=== PATIENT | female | born 1975 | race Caucasian/White ===

== ENCOUNTER 2022-02-15 12:00 | Outpatient (CLI) | payer OTHER, SELFPAY ==
[2022-02-15 13:21] LABS: Hematocrit 31.9 % (37-47); Hemoglobin 10.3 g/dL (12.0-15.0); Mean Corp Hgb Conc 32.3 g/dL (32-36); Mean Corpuscular Volume 86.7 fL (81-99); Platelet Count 352 K/mm3 (150-450); RBC Distribution Width CV 16.4 % (11.6-14.6); RBC Distribution Width SD 51.1 fl (35.1-43.9); Red Blood Count 3.68 M/mm3 (4.2-5.4); White Blood Count 5.5 K/mm3 (4.4-11.0)
== END 2022-02-15 23:59 | disposition home or self-care (01) ==
LOC: LABSPEC 12:03
PROVIDERS: Visit Provider Obstetrics & Gynecology
DX: R19.00 Intra-abdominal and pelvic swelling, mass and lump, unspecified site (principal)
CPT/HCPCS: 36415; 85027; 86304

== ENCOUNTER 2022-03-05 13:14 | Inpatient (IN) | payer SELFPAY, OTHER ==
[2022-02-28 11:39] LABS: Hematocrit 33.1 % (37-47); Hemoglobin 10.8 g/dL (12.0-15.0); Mean Corp Hgb Conc 32.6 g/dL (32-36); Mean Corpuscular Hgb 28.1 pg (27.0-32.0); Mean Corpuscular Volume 86.2 fL (81-99); Mean Platelet Vol. 9.4 fl (6.2-12.0); Platelet Count 337 K/mm3 (150-450); RBC Distribution Width CV 16.1 % (11.6-14.6); RBC Distribution Width SD 50.8 fl (35.1-43.9); Red Blood Count 3.84 M/mm3 (4.2-5.4); White Blood Count 6.1 K/mm3 (4.4-11.0)
[2022-02-28 11:48] LABS: International Normalized Ratio 0.9; Prothrombin Time (Protime)PT. 12.1 SECONDS (11.7-14.9)
[2022-02-28 11:49] LABS: Partial Thromboplast Time 29.5 Seconds (24.1-36.2)
[2022-02-28 11:50] LABS: Magnesium 2.1 mg/dL (1.6-2.6)
[2022-02-28 11:59] LABS: Creatinine, Serum 0.59 mg/dL (0.55-1.02); EST Glomerular Filtration Rate 117 mL/min (>60); Est Glom Filt Rate - Afr Amer 142 mL/min (>60)
[2022-02-28 12:03] LABS: Internal QC Validated? YES +Cl - CLEAR BKGD; Pregnancy, Serum, hCG Quali. NEGATIVE Negative
--- NOTE | 2022-03-02 18:06 | HP.PCM_ITS ---
History and Physical Date of Admission: 03/05/22 Surgical History and Physical Christelle Saldaña, a 46 year old female 0 0 0 0 0, presents for RENETTA/BS on March 05, 2022. -- Large Pelvic Mass Likely Fibroids -- Christelle is here today to discuss fibroids that was found on a CT scan on 02/01/22 in [facility]. States she has fullness and mild pain in her abdominal pelvic area. MEdications and allergies are up to date. Never had IC. Fibroids and abdominal pelvic fullness and pain which began 3 weeks ago and has been present 3 weeks. It is located in the uterus. Severity is mild to moderate. It is aggravated by lifting. It is relieved by rest. Additional comments are: lots of pelvic pressure.; Additional comments are: CT scan at [facility] showed large masses (20 cm) likely fibroids. Confirmed with u/s. MEDICATIONS HISTORY: Patient is also takin. No Meds ALLERGIES: No Known Drug Allergies Infections - none Hospitalizations - none Review of Systems: GENERAL - Denies fever, or chills SKIN - Denies skin changes EYES - Denies visual changes EARS - Denies difficulty hearing NOSE - Denies nasal congestion or bleeding MOUTH - Denies sore throat or difficulty swallowing NECK - Denies pain or swelling RESPIRATORY - Denies shortness of breath or wheezing CARDIOVASCULAR - Denies palpitations or chest pain GASTROINTESTINAL - Denies nausea, vomiting, diarrhea, constipation GENITOURINARY - Denies dysuria, frequency of urination, incontinence of urine MUSCULOSKELETAL - Denies joint or muscle pain NEUROLOGICAL - Denies localized numbness or weakness PSYCHIATRIC - Denies depression or anxiety ENDOCRINE - Denies heat or cold intolerance, weight loss or gain HEMATO-IMMUNOLOGIC - Denies excesive bleeding with cuts SOCIAL HISTORY: Alcohol Use - denies drinking Smoking - denies smoking Exercise - active 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 none PHYSICAL EXAM BP- 110/70 Sitting, Right arm, regular cuff Weight- 144.0 lbs Height- 66.75 inch BMI:22.7 CONSTITUTIONAL - NAD, well nourished, and well developed SKIN - No rash, lesions, or ulcers HEENT - Normocephalic, PERRLA, EOMI NECK - No nodes, no nuchal rigidity and thyroid normal size and texture LYMPH NODES - Palpation of lymph nodes in neck and groins within normal limits LUNGS - CTA x2 without wheezes, crackles or rales CARDIAC - Regular rate and rhythm without rubs, murmurs, or gallops ABDOMEN - Without hepatosplenomegaly, distention, masses, rebound, or guarding; normal bowel sounds; no hernias and large 28 cm uterine mass mildly moveable EXTREMITIES - No edema or calf tenderness NEUROLOGICAL - Cranial nerves II-XII grossly intact PSYCHIATRIC - A and O to time, place, person, mood and affect ASSESSMENT/PLAN: 1. Other Intra-abdominal And Pelvic Swelling, Mass And Lump Likely large symptomatic uterine fibroids. U/S done in office today also suggests this is fibroids. CA-125 benign result. Proceed with RENETTA/BS. Discussed RBAs including possible need for txn or BSO with need for HRT and all questions answered.
[2022-03-05] VITALS (14 sets, daily range): BP systolic 88–115; BP diastolic 47–72; PULSE 50–76; RESP 12–16; TEMP 36.4–37.4; O2SAT 16–100; BMI 24.6
--- NOTE | 2022-03-05 | OV_PTH ---
PATIENT: LEXII LUND LOC: MS3 U#:[id number] AGE/SX: 46/F ROOM: [facility] [place] RE03/05/[address]: Dr. Boris Ritchie MD : 1975 BED: 1 DIS: 03/07/2022 SPEC #: [id number] RECD: 03/05/22 11:31 STATUS: DIANA SCHWARTZ #: [id number] RISHABH: 03/05/22 00:[address]: Boris Ritchie DEPT: SURGICAL PATHOLOGY RECD BY: Vaishnavi Medrano ENTERED: 03/05/22 12:04 SP TYPE: OVARY OTHR DR: Dr. Robert Brito MD Tissues: A - Left ovary B - Uterus, NOS Procedures: Frozen Section (charge) Surgery Specimen Level IV Surgery Specimen Level V HEADER OPERATION: ERAS, total abdominal hysterectomy, bilateral salpingectomy PRE-OP DIAGNOSIS: Intra-abdominal and pelvic swelling, mass and lump TISSUE SUBMITTED: A ? Left ovary, FS, B ? Uterus cervix, bilateral fallopian tubes FROZEN SECTION DIAGNOSIS A. Left ovary: Consistent with leiomyoma. DOMINIC:susie 03/05/2022 MICROSCOPIC DIAGNOSIS A. Left ovary: Consistent with leiomyoma (1950 gm and 24 cm in greatest dimension). B. Uterus, cervix and bilateral fallopian tubes, hysterectomy and bilateral salpingectomy: Cervix ? mild chronic inflammation. Endometrium ? proliferative endometrium. Myometrium ? intramural and submucosal leiomyomas. Bilateral fallopian tubes - no pathologic diagnosis. DOMINIC:susie 03/06/2022 MICROSCOPIC DESCRIPTION Slides are reviewed. GROSS DESCRIPTION A - Received fresh for frozen section diagnosis labeled with the patient's name is a specimen designated left ovary. The specimen consists of a large bartholomew-white nodule weighing 1950 gm and measuring 24 x 16 x 12 cm. The specimen is inked and serially sectioned and reveal bartholomew whorled cut surfaces without areas of hemorrhage, necrosis or cystic degeneration. Two sections are submitted for?frozen section diagnosis. Roller Die Cutting Machine Operator sections are submitted in ten cassettes as follows: 1 & 2 - frozen section, 3-10 - more sections. / DOMINIC:susie 03/05/2022 B - Received in fixative is one container labeled with the patient's name and designated uterus, cervix, bilateral fallopian tubes. The specimen consists of a hysterectomy specimen consisting of uterus, cervix and bilateral fallopian tubes. Also present in the container is a detached nodular mass and piece of bartholomew soft tissue. The uterus with cervix weighs 276 gm and measures 12 x 8 x 7 cm. The body of the uterus is distorted. The serosal surface is bartholomew, glistening. The ectocervical mucosa is unremarkable. The external os is pinpoint in contour. The endocervical canal measures 3.5 cm in length and the endocervical mucosa is bartholomew, glistening and unremarkable. Sections of the cervix reveal multiple cysts filled with mucoid material. The endometrial cavity is compressed to one side and triangular in shape and measures 6 cm in length and up to 4.5 cm in width. The endometrium is bartholomew, glistening without any mass lesion and measures up to 0.3 cm in thickness. Sections of the uterine wall reveal a large submucosal nodular mass measuring 6 cm in greatest dimension. Smaller nodular masses are also noted. The uninvolved uterine wall measures up to 2.5 cm in thickness. Sections of these masses reveal bartholomew whorled cut surfaces without areas of hemorrhage, necrosis or cystic degeneration. The detached nodular mass measures 3 cm in diameter. Also present in the container is a detached piece of soft tissue with a suture measuring 6 x 2 x 0.3 cm. Sections of this piece do not reveal any mass lesion. The right fallopian tube measures 7 cm in length and up to 0.6 cm in diameter. The fimbrial end is identified. Sections reveal unremarkable cut surfaces. The left fallopian tube is similar appearance to right and measures 8 cm in length and up to 0.8 cm in diameter. Roller Die Cutting Machine Operator sections are submitted in 12 cassettes as follows: 1 - anterior cervix, 2 - posterior cervix, 3 & 4 - anterior uterine wall, 5 & 6 - posterior uterine wall, 7 - largest submucosal nodular mass, 8 - detached nodular mass, 9 - smaller nodular masses, 10 - right fallopian tube, 11??detached piece of soft tissue, 12 - left fallopian tube. / SJ:susie 03/05/2022 TC:1 CPT: 29323, 58417, 21834
[2022-03-05 09:02] LABS: Internal QC Validated? YES +Cl - CLEAR BKGD; Pregnancy, Urine Negative Negative
[2022-03-05] MEDS: Acetaminophen 500 MG Tablet 1000 MG PO ×2 (09:13→17:58)
[2022-03-05] MEDS: Gabapentin 600 MG Tablet PO (09:13)
[2022-03-05 09:56] LABS: Bedside Glucose 91 mg/dL (74-106)
[2022-03-05] MEDS: Cefazolin 2 GM in 0.9% Normal Saline 100 ML IV (10:26)
--- NOTE | 2022-03-05 12:35 | OP.PCM_ITS ---
Problems Associated Problem List Diagnoses (1) Uterine fibroid: Report of Operation Date of Procedure: 03/05/22 Pre-Operative Diagnosis: Uterine fibroid Post-Operative Diagnosis: Same Surgery/Procedure Performed:: Repair of mesenteric rent Surgeon: Mitch Lawrence clarifier operator helper: Boris Ritchie Type of Anesthesia: General Description of Procedure: Got cold in the operating room to Dr. Ritchie's case. He was removing a large uterine fibroid and he developed a mesenteric rent in the mesentery of the transverse colon. Inspection of this the colon looked viable it had a good blood supply the blood supply was easily palpable. The rent however was significantly large at least the size of a baseball. I brought this together with 2-0 Vicryl making sure not to injure any of the vasculature to the colon. Mesenteric rent was closed except for the very top near the colon which I left open. I had good admit stasis Dr. Ritchie we will be doing the rest of the closure. Admit VTE Documentation VTE Present on Admission: No VTE Mechan Device Prophylaxis: SCD's VTE Pharm Prophylaxis ordered?: No
--- NOTE | 2022-03-05 12:59 | PCM.OPRPT ---
Report of Operation Date of Procedure: 03/05/22 Pre-Operative Diagnosis: Large Symptomatic Uterine Fibroids Post-Operative Diagnosis: Large Symptomatic Uterine Fibroids, Adhesions Surgery/Procedure Performed:: Total Abdominal Hysterectomy, Bilateral Salpingectomy, Lysis of Adhesions, Repair of Mesentery of Colon Description of Surgical Findings:: Approximately a 20 cm pedunculated fibroid with dense adhesions to the omentum and sigmoid colon and sigmoid colon mesentery. Approximately a 10 cm uterus with normal-appearing fallopian tubes and ovaries after the fibroid was removed. Surgeon: Boris Ritchie boat canvas maker installer: Elida Taveras Type of Anesthesia: General (Endotracheal) Anesthesiologist: Michael Santo Specimen's removed: Uterus and bilateral fallopian tubes. Drains: Hamilton to straight drain Estimated Blood Loss (mL): 650 cc Fluids Replaced: Crystalloid Description of Procedure: Surgeon: Boris Ritchie MD, FACOG Intraoperative Consult: Juve Lawrence MD, FACS Procedure: Total Abdominal Hysterectomy, Bilateral Salpingectomy, Lysis of Adhesions. Repair of mesentery per Dr. Lawrence reported separately. Indications: This is a 46-year-old patient who his been having problems with symptoms from a large pelvic mass which is believed to be a fibroid. Given this the patient desires that we proceed with the above procedure. She has been counseled regarding the risk and indications of this procedure including the possibility of bleeding, infection, and injury to surrounding structures such as bowel bladder. She understands that if both ovaries need to be removed that she will need to be on hormone replacement therapy for an indefinite period of time. All questions were answered. Procedure: Patient was taken to the operating room where after induction of general anesthesia she was prepped and draped in the usual sterile fashion. A Hamilton catheter was placed. The abdomen was entered through a midline incision and peritoneal cavity was entered bluntly. The large pelvic mass was encountered and attempts were made to deliver this through the incision. It was necessary to take down multiple adhesions between the large bowel, omentum, and mass with #1 Vicryl ties used extensively. After the fibroid was delivered and stalk ligated, Mag retractor was placed. Round ligaments were identified and ligated with 0 Vicryl suture. Mesosalpinx were ligated x2. A bladder flap was developed and progressive bites were then taken down on either side of the uterine cervix ligating each pedicle with 0 Vicryl suture. Final bites across the vaginal cuff incorporated the uterosacral ligaments into the vaginal cuff using 0 Vicryl suture and multiple [id number] sutures were placed across the vaginal cuff. Vaginal cuff and pelvic sidewall pedicles were oversewn where necessary to achieve hemostasis. Peristalsis of the right ureter was noted. Pelvis was copiously irrigated removing all clot. Mariola was placed to help with postoperative hemostasis across the vaginal cuff. The area of adhesiolysis of the large bowel was examined and there was noted to be approximately 10 cm opening in the mesentery. We asked Dr. Lawrence to examine this area and this was closed per Dr. Lawrence to avoid internal hernia formation. This is dictated separately per Dr. Lawrence. [place] retractor was removed and peritoneum was closed with running 3-0 Vicryl suture. 0 PDS loop suture was used to close the fascia in a running fashion and subcutaneous tissue was copiously irrigated with saline solution before closing with 3-0 Vicryl suture. Interrupted 4-0 Vicryl suture was placed subcuticularly to reapproximate the skin edges and 3-0 Monocryl suture was then used in running fashion to further reapproximate skin edges area and Steri-Strips and Mepilex dressing were placed across the incision. Patient tolerated the procedure well was taken to recovery room in satisfactory condition; sponge instrument and needle counts were all reportedly correct. Estimated blood loss for the case was 650 cc. Ancef 2 g IV was given prior to beginning the operative procedure. There were no apparent complications of the surgery. Specimen to pathology was uterus and bilateral fallopian tubes. Grafts/Implants Used: None Complications None Admit VTE Documentation VTE Present on Admission: Yes VTE Mechan Device Prophylaxis: SCD's
[2022-03-05] MEDS: Ondansetron 4 MG/2 ML Vial IV (13:15)
[2022-03-05] MEDS: Cefazolin 1 GM/50 ML BAG IV (17:58)
[2022-03-05] MEDS: Ondansetron ODT 4 MG Tablet PO (19:57)
[2022-03-05] MEDS: Ketorolac 30 MG/ML Syringe IV (21:08)
[2022-03-05] MEDS: Docusate Sodium 100 MG Capsule PO (21:08)
[2022-03-05] MEDS: Enoxaparin 30 MG/0.3 ML Syringe SC (21:08)
[2022-03-06 00:20] VITALS: BP 105/56; PULSE 67; RESP 18; TEMP 36.8; O2SAT 97
[2022-03-06] MEDS: Acetaminophen 500 MG Tablet 1000 MG PO ×4 (00:25→17:02)
[2022-03-06] MEDS: oxyCODONE 5 MG Tablet PO ×3 (00:25→17:01)
[2022-03-06 02:57] VITALS: BP 100/51; PULSE 68; RESP 18; TEMP 36.6; O2SAT 99
[2022-03-06] MEDS: Cefazolin 1 GM/50 ML BAG IV (03:00)
[2022-03-06] MEDS: Ketorolac 30 MG/ML Syringe IV ×4 (03:00→20:22)
[2022-03-06 06:18] LABS: Hematocrit 26.2 % (37-47); Hemoglobin 8.3 g/dL (12.0-15.0); Mean Corp Hgb Conc 31.7 g/dL (32-36); Mean Corpuscular Hgb 27.9 pg (27.0-32.0); Mean Corpuscular Volume 87.9 fL (81-99); Mean Platelet Vol. 10.4 fl (6.2-12.0); Platelet Count 229 K/mm3 (150-450); RBC Distribution Width CV 16.1 % (11.6-14.6); RBC Distribution Width SD 52.2 fl (35.1-43.9); Red Blood Count 2.98 M/mm3 (4.2-5.4); White Blood Count 7.5 K/mm3 (4.4-11.0)
[2022-03-06 06:56] LABS: Creatinine, Serum 0.59 mg/dL (0.55-1.02); EST Glomerular Filtration Rate 117 mL/min (>60); Est Glom Filt Rate - Afr Amer 142 mL/min (>60); Estimated Creatinine Clearance 103.98 ml/min
[2022-03-06 07:15] VITALS: O2SAT 97
[2022-03-06 08:05] VITALS: BP 94/60; PULSE 61; RESP 16; TEMP 36.7; O2SAT 98
[2022-03-06] MEDS: 0.9% Saline Lock 10 ML Syringe IV ×3 (08:26→20:24)
--- NOTE | 2022-03-06 08:56 | PN.OBGYN_ITS ---
Subjective Subjective Patient without complaints. Tolerating clear liquids well. Denies flatus. Minimal vaginal bleeding reported pain well controlled with Toradol Tylenol and occasional dose of oxycodone. Objective Data Objective Data Good urine output. Hemoglobin as expected. Wound clean, dry, intact. Vital Signs: Vital Signs Temp Pulse Resp BP Pulse Ox 98.1 F 61 16 94/60 98 03/06/22 08:05 03/06/22 08:05 03/06/22 08:05 03/06/22 08:05 03/06/22 08:05 Oxygen Flow Rate (L/min) 4 Oxygen Delivery Method Room Air Weight: 147 lb 11.355 oz Body Mass Index (BMI) 24.6 Intake & Output: Intake and Output for Last 24 Hours 03/04/22 03/05/22 03/06/22 23:59 23:59 23:59 Intake Total 1262 / 1462 250 / 250 Output Total 950 / 1700 2100 / 2100 Balance 312 / -238 -1850 / -1850 Lab / Micro Data Result Diagrams: 03/06/22 05:35 03/06/22 05:35 Labs: Laboratory Results - last 24 hr 02/28/22 11:09: Blood Type Cancelled, A1 Antigen Typing Cancelled, Rho(D) Type Cancelled, Antibody Screen Cancelled, Crossmatch See Detail 03/05/22 08:50: Urine Test Negative 03/05/22 09:41: POC Glucose 91 03/06/22 05:35: Creatinine 0.59, Estim Creat Clear Calc 103.98, Est GFR (MDRD) Af Amer 142, Est GFR (MDRD) Non-Af 117 03/06/22 05:35: WBC 7.5, RBC 2.98 L, Hgb 8.3 L, Hct 26.2 L, MCV 87.9, MCH 27.9, MCHC 31.7 L, RDW Std Deviation 52.2 H, RDW Coeff of Amy 16.1 H, Plt Count 229, MPV 10.4 Micro: Microbiology 03/05/22 09:00 Interface Orders SARS-CoV-2 Antigen (Rapid) - Final Assessment & Plan (1) Uterine fibroid: PLAN: Doing well postoperative day #1 status post hysterectomy and bilateral salpingectomy for large uterine fibroid. We will continue clear liquids until flatus due to extensive adhesion involvement of bowel with f ibroid. Continuing present care.
--- NOTE | 2022-03-06 09:35 | CASEMGMT ---
CARMELITA TAYLOR Assessment: Face to Face with pt for initial transition planning/care coordination assessment. RN BRANDON introduced self and role at [facility], pt voices understanding and consents to assessment. Pt is A/O x4 and answers all questions appropriately at this time. Pt lying in bed in no distress. Care providers, pharmacy, and demographics verified/updated. Admitting Dx: milton JACKSON PCP:Robert Brito Specialists:Erma WINDSHIELD WIPER REPAIRER Preferred Pharmacy: [facility] while inpatient Insurance: [facility] Package Plan, [employer] Prescription Benefit: no LW/HPOA: Pt denies having a LW/DPOA and denies need for info regarding AD. LNOK: Mary Cm, sister Living Arrangements: Pt lives with mother in a two story house with 3 steps to enter. Pt reports she is I in ADL's and denies concerns at home. 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 DME/HHC/SNF: Pt denies having any DME, hx of HHC or SNF stays. Pt states no concerns with going home at time of dc. Pt states no further concerns/needs. CM to follow. Advised pt to ask CM if any further question/concerns/needs arise, voices understanding. Pt Goal: Home Plan: Home
[2022-03-06] MEDS: Docusate Sodium 100 MG Capsule PO ×2 (11:12→20:24)
[2022-03-06 13:42] VITALS: BP 104/57; PULSE 75; RESP 16; TEMP 37.1; O2SAT 99
--- NOTE | 2022-03-06 16:11 | NURSING ---
BladderScanned Pt for approximately 50ml. unable to get proper reading d/t placement of drsg. Pt states that she feels as though she is emptying. will continue to monitor.
--- NOTE | 2022-03-06 17:04 | NURSING ---
pt encouraged to ambulate to help with gas pains, but to no avail as pt states it is too uncomfortable to move. pt was enlightened to benefits of movement, but so far has resisted.
[2022-03-06 19:30] VITALS: BP 104/58; PULSE 84; RESP 16; TEMP 36.9; O2SAT 98
[2022-03-07] MEDS: 0.9% Saline Lock 10 ML Syringe IV ×2 (03:47→09:04)
[2022-03-07] MEDS: Ketorolac 30 MG/ML Syringe IV ×2 (03:47→09:04)
[2022-03-07 04:03] VITALS: BP 98/61; PULSE 83; RESP 16; TEMP 36.7; O2SAT 97
[2022-03-07] MEDS: Acetaminophen 500 MG Tablet 1000 MG PO ×3 (05:17→12:21)
[2022-03-07 08:01] VITALS: BP 103/65; PULSE 87; RESP 16; TEMP 36.3; O2SAT 97
[2022-03-07] MEDS: Docusate Sodium 100 MG Capsule PO (09:04)
--- NOTE | 2022-03-07 09:33 | PCM.PN.OB ---
Subjective Subjective Patient without complaints. Tolerating clear liquid diet well. Positive flatus and good bowel sounds. Wants to go home later today. Objective Data Objective Data Wound is clean, dry, intact. Vital signs stable. Vital Signs: Vital Signs Temp Pulse Resp BP Pulse Ox 97.4 F L 87 16 103/65 97 03/07/22 08:01 03/07/22 08:01 03/07/22 08:01 03/07/22 08:01 03/07/22 08:01 Oxygen Flow Rate (L/min) 4 Oxygen Delivery Method Room Air Weight: 147 lb 11.355 oz Body Mass Index (BMI) 24.6 Intake & Output: Intake and Output for Last 24 Hours 03/05/22 03/06/22 03/07/22 23:59 23:59 23:59 Intake Total 1262 / 1462 250 / 250 Output Total 950 / 1700 2200 / 2200 Balance 312 / -238 -1950 / -1950 Lab / Micro Data Result Diagrams: 03/06/22 05:35 03/06/22 05:35 Micro: Microbiology 03/05/22 09:00 Interface Orders SARS-CoV-2 Antigen (Rapid) - Final Assessment & Plan (1) Uterine fibroid: PLAN: Doing well postoperative day #2 status post RENETTA/BS. Will discharge to home with routine instructions. Follow-up in 2 to 3 weeks in the office.
--- NOTE | 2022-03-07 09:35 | PCM.DC ---
Discharge Instructions Diet Discharge Diet: No restrictions (do what you feel comfortable, but do not over do it. You may climb stairs, just use caution and hold the railing.) Activity May resume sexual activity in: 6 weeks (nothing in the vagina.) Lifting Restrictions: 20 pounds for 6 weeks. Dressing / Incision Call your doctor if your incision/area has: Continuous Slow Oozing, Sudden Increased Bleeding, Increased Pain/ Swelling, Increased Redness and Foul Smelling Discharge Call your doctor if you observe: Fever of 101 or Higher, Inability to urinate, Inability to have a bowel movement, Using more than 1 pad per hour and - (Some vaginal bleeding may be noted for up to 4-8 weeks.) Change Dressing in: leave in place till F/U (or remove outside dressing in 1-2 weeks if bothersome) Cleanse incision/area with: - (Let the soapy water run over your incision, rinse and pat dry.) Follow Up Care Please Follow Up With: Boris Ritchie MD When: Call [phone] for an appointment to be seen in 2-3 weeks. Test Results: Test results from this visit will be discussed in further detail at your follow-up appointment, if applicable. Discharge Plan Admission Admit Date/Time: 03/05/22 13:14 Primary Reason for Your Visit: Uterine Fibroids Attending Provider: Boris Ritchie Primary Care Provider: Robert Brito Discharge Orders/Prescriptions Prescriptions: New oxycodone 5 mg capsule 5 mg PO Q6H PRN (Reason: pain (scale score 7-10)) 7 Days Qty: 14 RF: 0 docusate sodium 100 mg tablet 100 mg PO BID PRN (Reason: constipation) Qty: 60 RF: 1 ferrous sulfate [Iron (ferrous sulfate)] 325 mg (65 mg iron) tablet 325 mg PO DAILY Qty: 60 RF: 0 Continued multivitamin Tablet 1 tab PO DAILY RF: 0 Referrals / Follow Up: Robert Brito MD [Primary Care Provider] - Disposition Disposition (needs filled in before D/C Order can be placed): Home, Self Care
--- NOTE | 2022-03-07 11:39 | PHA.DC.MC ---
Pharmacy Service has performed discharge medication reconciliation and counseling for this patient. 1. DOCUSATE 100MG PO BID PRN CONSTIPATION 2. FERROUS SULFATE 325MG PO DAILY 3. OXYCODONE 5MG PO Q6H PRN SEVERE PAIN The patient's discharge medication list was reviewed for discrepancies and discrepancies were resolved. Home Medications multivitamin 1 tab PO DAILY 02/26/22 docusate sodium 100 mg PO BID PRN #60 tab 03/07/22 ferrous sulfate [Iron (ferrous sulfate)] 325 mg PO DAILY #60 tab 03/07/22 oxycodone 5 mg PO Q6H PRN 7 Days #14 cap 03/07/22 The patient was counseled on the following discharge medications and changes in medications for homegoing were reviewed. The Reason for Use, instructions for use, and potential side effects were reviewed for all new medications. The patient's questions regarding all of their medications were answered. The patient was able to verbally demonstrate an understanding of their discharge medications.
[2022-03-07] MEDS: oxyCODONE 5 MG Tablet PO ×2 (12:23)
== END 2022-03-07 13:05 | disposition home or self-care (01) | DRG 742 ==
LOC: SDC 13:56 → MS3 13:56
PROVIDERS: Anesthesiology; Admitting Provider Obstetrics & Gynecology; PCP Orthopaedic Surgery; Referring Provider Obstetrics & Gynecology; Visit Provider Obstetrics & Gynecology
PROC: 0UT90ZZ Resection of Uterus, Open Approach (ICD-10-PCS; CPT 58150; principal; 2022-03-05 10:15)
DX: D25.1 Intramural leiomyoma of uterus (principal); K56.50 Intestinal adhesions [bands], unspecified as to partial versus complete obstruction; K66.8 Other specified disorders of peritoneum; D25.0 Submucous leiomyoma of uterus; N93.9 Abnormal uterine and vaginal bleeding, unspecified; Z28.310 Unvaccinated for COVID-19; Z28.9 Immunization not carried out for unspecified reason
CPT/HCPCS: 36415; 81025; 82565; 82962; 83735; 84703; 85027; 85610; 85730; 86850; 86900; 86901; 86920; 87426; 88305; 88307; 88331; 99251; J7120; A4216; G0463; J2405; J3475